=== PATIENT | male | born 1985 | race Caucasian/White ===

== ENCOUNTER 2018-09-27 08:07 | Emergency (ER) | payer OTHER ==
[~2018-09-27] VITALS: Ht 185.4 cm; Wt 93.0 kg
[~2018-09-27 08:07] MED LIST: ALBU90OI INH; ALPR.5 PO; CITA20 PO; CODACE30 PO; Cleocin HCl300 MG PO; LACT10SY PO; Loperamide2 MG PO; NAPR500 PO; Naprosyn500 MG PO; PARO30 PO; PROCODE120 PO; PROM25 PO; Prednisone20 MG PO; Prozac20 MG PO; QUET25 PO; RXOXYACE PO; SLEEP MED; SPACE CHAMBER1 EACH MC; TRAM50 PO; Ultram50 MG PO; Veetids 500500 MG PO; Zofran Odt4 MG SL
[2018-09-27] MEDS ORDERED: KETO10 PO (09:54)
[2018-09-27] MEDS ORDERED: CYCL10 PO (09:54)
== END 2018-09-27 10:30 | disposition home or self-care (01) ==
LOC: ER 08:07
DX: S16.1XXA Strain of muscle, fascia and tendon at neck level, initial encounter (principal); F17.210 Nicotine dependence, cigarettes, uncomplicated; X58.XXXA Exposure to other specified factors, initial encounter
CPT/HCPCS: 72040; 99283-25

== ENCOUNTER 2018-10-03 17:17 | Emergency (ER) | payer OTHER ==
[~2018-10-03] VITALS: Ht 185.4 cm; Wt 93.0 kg
[~2018-10-03 17:17] MED LIST changes: +CYCL10 PO; +KETO10 PO
[2018-10-03] MEDS ORDERED: PENVK500 PO (18:20)
[2018-10-03] MEDS ORDERED: KETO10 PO (18:20)
[2018-10-03] MEDS ORDERED: CYCL10 PO (18:20)
== END 2018-10-03 18:25 | disposition home or self-care (01) ==
LOC: ER 17:17
DX: K04.7 Periapical abscess without sinus (principal); M54.2 Cervicalgia; G89.29 Other chronic pain; F17.210 Nicotine dependence, cigarettes, uncomplicated
CPT/HCPCS: 99283

== ENCOUNTER 2021-11-07 17:10 | Observation (INO) | payer OTHER ==
[~2021-11-07] VITALS: Ht 182.9 cm; Wt 113.4 kg
[~2021-11-07 17:10] MED LIST changes: +PENVK500 PO
[2021-11-07 18:05] LABS: BASOPHILS ABSOLUTE AUTO 0.05 K/mm3 (0.00-0.23); BASOPHILS PERCENT AUTO 1 % (0-2); EOSINOPHILS ABSOLUTE AUTO 0.14 K/mm3 (0.00-0.68); EOSINOPHILS PERCENT AUTO 1 % (0-6); Hematocrit 46.1 % (37.0-53.0); Hemoglobin 16.1 g/dL (13.5-17.5); IMMATURE GRAN ABSOLUTE AUTO 0.04 K/mm3 (0.00-0.10); IMMATURE GRAN PERCENT AUTO 0 % (0-1); LYMPHOCYTES ABSOLUTE AUTO 3.22 K/mm3 (0.84-5.20); LYMPHOCYTES PERCENT AUTO 29 % (21-46); MONOCYTES ABSOLUTE AUTO 0.54 K/mm3 (0.16-1.47); MONOCYTES PERCENT AUTO 5 % (4-13); Mean Corpuscular HGB 31.9 pg (26.0-34.0); Mean Corpuscular HGB Conc 34.9 g/dL (31.5-36.5); Mean Corpuscular Volume 91 fL (80-100); Mean Platelet Volume 10.5 fL (9.1-12.4); NEUTROPHILS ABSOLUTE AUTO 6.97 K/mm3 (1.96-9.15); NEUTROPHILS PERCENT AUTO 64 % (41-73); Platelet Count 286 K/mm3 (150-400); RDW Coefficient Variation 12.4 % (11.7-14.2); RDW Standard Deviation 41.4 fL (35.1-46.3); Red Blood Cell Count 5.05 M/mm3 (4.30-5.90); White Blood Cell Count 10.96 K/mm3 (4.00-11.30)
[2021-11-07 18:32] LABS: Magnesium, Blood 1.8 mg/dL (1.6-2.4); Salicylate 3.8 mg/dL (2.8-20.0)
[2021-11-07 18:45] LABS: Alanine Aminotransfer (ALT/SGP 35 U/L (12-78); Albumin, Blood 4.6 g/dL (3.4-5.0); Albumin/Globulin Ratio 1.5 (0.8-1.8); Alk Phos 85 U/L (50-136); Anion Gap 8 mmol/L (6-16); Aspartate Aminotrans (AST/SGOT 17 U/L (12-37); Bilirubin, Total 0.3 mg/dL (0.1-1.0); Blood Urea Nitrogen 10 mg/dL (8-24); Bun/Creatinine Ratio 9.2 (12.0-20.0); CO2, Blood 23 mmol/L (21-32); Calcium, Blood 9.3 mg/dL (8.5-10.1); Chloride, Blood 108 mmol/L (98-108); Creatinine, Blood 1.09 mg/dL (0.60-1.20); Ethanol (Alcohol), Blood, Med <3 mg/dL; Globulin, Blood 3.1 g/dL (2.2-4.0); Glomerular Filtration Rate 91 (60-); Glucose, Blood 100 mg/dL (70-99); Potassium, Blood 3.4 mmol/L (3.5-5.5); Sodium, Blood 139 mmol/L (136-145); Total Protein, Blood 7.7 g/dL (6.4-8.2)
[2021-11-07 18:46] LABS: Acetaminophen, Random <2.0 ug/mL (10.0-30.0)
[2021-11-07 18:53] LABS: U Amphetamine Screen Not Detected; U Barbituate Screen Not Detected; U Benzodiazapine Screen Not Detected; U Buprenorphine Screen Not Detected; U Cannabinoids Screen Not Detected; U Cocaine Screen Not Detected; U Methadone Screen Not Detected; U Methamphetamine Screen Not Detected; U Opiates Screen Not Detected; U Oxycodone Screen Not Detected; U Phencyclidine Screen Not Detected; U Propoxyphene Screen Not Detected
[2021-11-07 19:13] LABS: Influenza A, PCR NEGATIVE (NEGATIVE); Influenza B, PCR NEGATIVE (NEGATIVE); Resp Syncytial Virus, PCR NEGATIVE (NEGATIVE); SARS-Cov-2 (COVID-19) PCR, MMC NEGATIVE (NEGATIVE)
[2021-11-08] MEDS ORDERED: SERT50 PO (00:47)
[2021-11-08 13:54] LABS: Source, Urine Foley catheter
[2021-11-08 14:18] LABS: Appearance, Urine Clear (Clear); Bilirubin, Urine Neg (Neg); Blood, Urine 3+ (Neg); Color, Urine Yellow (P-Yellow); Glucose Qualitative, Urine Neg (Neg); Ketones, Urine Neg (Neg); Leukocyte Esterase, Urine 3+ (Neg); Nitrite, Urine Neg (Neg); Protein, Urine Neg (Neg); Urobilinogen, Urine NORM (Normal)
[2021-11-08 14:58] LABS: Bacteria Mod /hpf; Mucus Light (0-Heavy); Squamous Epithelial Cells Rare /hpf (Few)
--- NOTE | 2021-11-08 16:58 | NUR ---
SHIFT SUMMARY 36-YEAR-OLD MALE, A&O X4 ON THIS SHIFT, INDEPENDENT ON SI PROTOCOL WITH 1:1 SITTER, 2-MD HOLD. SEEN BY DR JAIN AND DC'D FROM SI WATCH. ORDERS FOR DC PLACED BY DR MARTINS. PTN TO FOLLOW RECOMMENDATIONS MADE BY DR JAIN, NEW PRESCRIPTION PHONED INTO [facility] PHARMACY. DC PAPERWORK REVIEWED WITH PTN, WHO VOICED UNDERSTANDING OF PLAN. PTN ESCORTED OUT OF HOSPITAL BY MOTHER.
== END 2021-11-08 16:21 | disposition home or self-care (01) ==
LOC: ER 17:10 → ERHOLD 17:11 → MEDS 17:11 → ER 11-08 00:13 → MEDS 11-08 00:13 → ERHOLD 11-08 00:13 → MEDS 11-08 00:13 → ERHOLD 11-08 01:07 → MEDS 11-08 01:07
PROVIDERS: Emergency Medicine; Internal Medicine; ADMIT Internal Medicine
DX: T44.3X2A Poisoning by other parasympatholytics [anticholinergics and antimuscarinics] and spasmolytics, intentional self-harm, initial encounter (principal); E87.6 Hypokalemia; F32.9 Major depressive disorder, single episode, unspecified; F17.210 Nicotine dependence, cigarettes, uncomplicated; Z79.899 Other long term (current) drug therapy; Z20.822 Contact with and (suspected) exposure to COVID-19
CPT/HCPCS: 0241U; 36415; 51702; 80053; 81001; 83735; 84439; 84443; 85025; 93005; 93010; 96365; 99285-25; A9270; G0378; G0480; J3480; J7030

== ENCOUNTER 2023-02-13 14:02 | Emergency (ER) | payer OTHER ==
[~2023-02-13] VITALS: Ht 182.9 cm; Wt 111.1 kg
[~2023-02-13 14:02] MED LIST changes: +SERT50 PO
[2023-02-13 14:09] VITALS: BP 159/88
[2023-02-13] MEDS ORDERED: Seroquel Xr50 MG (14:12)
== END 2023-02-13 14:57 | disposition home or self-care (01) ==
LOC: ER 14:02
DX: K64.8 Other hemorrhoids (principal); F17.200 Nicotine dependence, unspecified, uncomplicated; Z79.899 Other long term (current) drug therapy
CPT/HCPCS: 82272; 99283